=== PATIENT | male | born 1960 | race Caucasian/White ===

== ENCOUNTER → 2018-03-27 | Outpatient (CLI) | payer BC ==
--- NOTE | 2018-03-27 11:36 | Diagnostic Imaging Report ---
PROCEDURE:US RETROPERITONEAL ( KIDNEY ). COMPARISON:Multiple prior renal ultrasounds, most recently 04/30/17 INDICATIONS:Malignant Neoplasm Of Kidney TECHNIQUE: [employer]-scale and color sonographic images of the bilateral kidneys and bladder where obtained in transverse and longitudinal planes. FINDINGS: Right: 12.9 x 8.1 x 6.9 cm. Cortical thickness 2.6 cm Left: 12.1 x 6.5 x 5.5 cm. Cortical thickness 2.2 cm. Both kidneys demonstrate normal parenchymal echogenicity. No sonographic evidence of solid mass, stone, or hydronephrosis. Post surgical changes status post left partial nephrectomy. Simple cysts: Unchanged simple renal cyst measuring up to 1.4 cm in the right lateral inferior kidney. Survey views of the urinary bladder are normal and demonstrate bilateral ureteral jets. The prostate measures 3.5 x 2.3 x 3.2 cm with a volume of 13.4 cc. CONCLUSION: Simple right renal cyst and partial left nephrectomy. No sonographic evidence of tumor recurrence. Dictated by: BHARGAV BAH M.D. on 03/27/2018 at 11:42 Electronically approved by: BHARGAV BAH M.D. on 03/27/2018 at 11:42
--- NOTE | 2018-03-27 11:44 | Diagnostic Imaging Report ---
EXAMINATION: CHEST 2 VIEWS INDICATION: MALIGNANT NEOPLASM OF KIDNEY COMPARISON: Chest radiograph 04/30/17. FINDINGS: TUBES and LINES: None. LUNGS: Lungs are well inflated. Lungs are clear. There is no evidence of pneumonia or pulmonary edema. PLEURA: No pleural effusion or pneumothorax. HEART AND MEDIASTINUM: The cardiomediastinal silhouette is unremarkable. Atherosclerotic calcification of the aortic arch. BONES AND SOFT TISSUES: No acute osseous lesion. Soft tissues are unremarkable. UPPER ABDOMEN: No free air under the diaphragm. IMPRESSION: No acute intrathoracic abnormality. Signed by: Dr. Oscar Ang MD on 03/27/2018 11:41 AM
== END ==
LOC: US 10:33
PROVIDERS: ATTEND Urology
DX: C64.9 Malignant neoplasm of unspecified kidney, except renal pelvis (principal)
CPT/HCPCS: 71046; 76770

== ENCOUNTER → 2019-02-18 | Outpatient (CLI) | payer BC ==
--- NOTE | 2019-02-18 13:31 | Diagnostic Imaging Report ---
EXAMINATION: CHEST 2 VIEWS INDICATION: Renal malignancy COMPARISON: None FINDINGS: LINES/TUBES:None LUNGS:The lungs are well-inflated. No focal consolidation or pulmonary edema. No radiographically apparent pulmonary nodules. PLEURA:No pleural effusion or pneumothorax. MEDIASTINUM:The cardiomediastinal silhouette appears normal in size and shape. Atherosclerotic calcifications of the thoracic aorta. BONES/SOFT TISSUES:No acute osseous injury. ABDOMEN:No free air under the diaphragm. IMPRESSION: No focal pneumonia or pulmonary edema. No radiographically apparent pulmonary nodules. Note is made that plain radiograph is not sensitive for detection of small pulmonary nodules. If there is high suspicion of metastatic disease, chest CT offers greater sensitivity. Signed by: Jonathan Rodriguez MD on 02/18/2019 1:28 PM
--- NOTE | 2019-02-18 13:35 | Diagnostic Imaging Report ---
EXAM: Renal Ultrasound INDICATION: ^[id number] ^[id number] ^MALIG NEOP LT KIDNEY COMPARISON: None TECHNIQUE: Transverse and longitudinal images of the kidneys and bladder were obtained. FINDINGS: Right Kidney: Length: 13.3 cm Appearance: Normal echogenicity. Collecting system: No hydronephrosis Stones: None Cyst/Mass: Simple cyst at the lateral midpole measures 1.9 x 1.5 x 1.6 cm. Left Kidney: Length: 12.2 cm Appearance: Normal echogenicity. Collecting system: No hydronephrosis Stones: None Cyst/Mass: None Bladder: No stones or mass. Prevoid volume estimate of 293cc. Bilateral ureteral jets seen. Prostate: The prostate measures 4.4 x 3.3 x 3.7 cm with volume estimate of 27.5 cc IMPRESSION: No renal calculi or hydronephrosis. Signed by: Jonathan Rodriguez MD on 02/18/2019 1:31 PM
== END ==
LOC: US 11:28
PROVIDERS: ATTEND Urology
DX: C64.2 Malignant neoplasm of left kidney, except renal pelvis (principal)
CPT/HCPCS: 71046; 76770